=== PATIENT | female | born 1955 | race Caucasian/White ===

== ENCOUNTER → 2017-08-21 | Outpatient (CLI) | payer OTHER ==
[2017-08-21 19:41] LABS: BASO % 0.7 % (0.0-1.0); EOS # 0.1 10^3/uL (0.0-0.50); EOS % 1.6 % (0.0-3.0); HEMATOCRIT 39.2 % (36.0-47.0); HEMOGLOBIN 12.7 g/dl (12.0-15.5); IMMATURE GRANULOCYTE % 0.5 % (0-3.0); LYMPH # 1.3 10^3/uL (1.5-4.5); LYMPH % 30.4 % (24.0-44.0); MEAN CORPUSCULAR HEMOGLOBIN 30.5 pg (27.0-33.0); MEAN CORPUSCULAR HGB CONC 32.4 g/dl (32.0-36.5); MEAN CORPUSCULAR VOLUME 94.2 fl (80.0-96.0); MONO # 0.5 10^3/uL (0.0-0.8); MONO % 11.1 % (0.0-5.0); NEUTROPHILS # 2.5 10^3/uL (1.8-7.7); NEUTROPHILS % 55.7 % (36.0-66.0); PLATELET COUNT, AUTOMATED 249 10^3/uL (150-450); RED BLOOD COUNT 4.16 10^6/uL (4.00-5.40); RED CELL DISTRIBUTION WIDTH 13.4 % (11.5-14.5); WHITE BLOOD COUNT 4.4 10^3/uL (4.0-10.0)
== END ==
LOC: M WUC 16:07
DX: R05 Cough (principal); H10.45 Other chronic allergic conjunctivitis; J32.0 Chronic maxillary sinusitis; J30.1 Allergic rhinitis due to pollen
CPT/HCPCS: 85025

== ENCOUNTER 2019-06-21 10:18 | Emergency (ER) | payer OTHER ==
[~2019-06-21] VITALS: Ht 165.1 cm; Wt 90.9 kg
[2019-06-21] MEDS ORDERED: KETOROLAC 30 MG/ML VIAL (J1885) IV ONE (10:30)
[2019-06-21] MEDS ORDERED: diazePAM 10 MG/2 ML INJ (J3360) IV ONE (10:30)
--- NOTE | 2019-06-21 11:06 | REP ---
Clinical: Trauma . Technique: AP, lateral, bilateral oblique, and coned-down views. Findings: Subtle compression fracture along the superior aspect of the L1 vertebral body appears acute and should be correlated clinically. Underline age-related osteopenia and moderate degenerative spondylosis including chronic grade 1 anterolisthesis at the L4-5 level and hypertrophic facet changes remain stable compared to MRI dated 03/19/2013. Impression: Findings suspicious for subtle acute L1 compression fracture. Electronically Signed by Gray Boyce MD 06/21/2019 10:58 A
[2019-06-21] MEDS ORDERED: LEVO125T4 PO (11:44)
[2019-06-21] MEDS ORDERED: CITA20TA6 PO (11:44)
[2019-06-21] MEDS ORDERED: EPIN0.3I11 (11:44)
--- NOTE | 2019-06-21 12:11 | REP ---
Clinical: Trauma. Fracture. Technique: Axial noncontrast images through the lumbosacral spine with coronal and sagittal re-formations. Correlation: MRI dated 03/19/2013. Findings: There is an acute compression fracture involving the superior endplates and anterior contour of the L1 vertebral body with approximately 15% loss of vertebral body height. The posterior contour, columns and posterior ring are intact and the fracture is stable. No retropulsed posterior fracture fragments are identified and the spinal canal remains patent and normal. Chronic grade 1 anterolisthesis at L4-5, multilevel hypertrophic facet changes and mild disc disease remains stable as compared to MRI dated 2012. Impression: 1. Acute compression deformity along the anterior-superior contour of the L1 vertebral body with 50% loss of vertebral body height. Fracture is stable. Electronically Signed by Gray Boyce MD 06/21/2019 12:03 P
[2019-06-21 12:53] VITALS: BP 163/95
== END 2019-06-21 12:54 | disposition home or self-care (01) ==
LOC: EDBD 10:18 → M ED 10:18
DX: S32.010A Wedge compression fracture of first lumbar vertebra, initial encounter for closed fracture (principal); W03.XXXA Other fall on same level due to collision with another person, initial encounter; Y92.219 Unspecified school as the place of occurrence of the external cause; Y93.41 Activity, dancing; Y99.9 Unspecified external cause status; E07.9 Disorder of thyroid, unspecified; Z85.42 Personal history of malignant neoplasm of other parts of uterus; M51.9 Unspecified thoracic, thoracolumbar and lumbosacral intervertebral disc disorder; Z79.899 Other long term (current) drug therapy; Z88.0 Allergy status to penicillin
CPT/HCPCS: 72110; 72131; 96374; 99284; J1885